=== PATIENT | male | born 1995 | race Caucasian/White ===

== ENCOUNTER 2017-09-15 06:41 | Emergency (ER) | payer OTHER ==
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
--- NOTE | 2017-09-15 08:54 | CR ---
Chest: Portable view of the chest was obtained. Comparison: No previous chest x-ray. Heart size and mediastinum are normal. Lungs are clear. Bony structures are grossly intact. Impression: 1. Nothing acute is identified on portable chest x-ray. Diagnostic code #1
--- NOTE | 2017-09-15 08:54 | CR ---
Right forearm: Two views of the right forearm were obtained. Comparison: No prior study. Soft tissue swelling seen within the forearm. No fracture or other bony abnormality is identified. Impression: 1. Soft tissue swelling. No bony abnormality is identified on right forearm study. Diagnostic code #2
== END 2017-09-15 07:50 | disposition home or self-care (01) ==
LOC: JD.ED 06:41
DX: S20.219A Contusion of unspecified front wall of thorax, initial encounter (principal); S80.811A Abrasion, right lower leg, initial encounter; Y92.410 Unspecified street and highway as the place of occurrence of the external cause; V54.5XXA Driver of pick-up truck or van injured in collision with heavy transport vehicle or bus in traffic accident, initial encounter
CPT/HCPCS: 71045; 71045-26; 73090-26-RT; 73090-RT; 99284; 99285-25

== ENCOUNTER 2019-04-11 19:17 | Emergency (ER) | payer OTHER ==
[2019-04-11] MEDS ORDERED: Glucagon,Human Recombinant 1 MG Vial IVPUSH ONE (19:40)
[2019-04-11] MEDS ORDERED: fentaNYL 100 MCG/2 ML SDV IVPUSH ONE (19:40)
[2019-04-11] MEDS ORDERED: Sodium Chloride 0.9% 10 ML Syringe FLUSH PRN (19:40)
--- NOTE | 2019-04-11 19:48 | EDM.PDOC ---
ED HPI GENERAL MEDICAL PROBLEM - General Chief Complaint: ENT Problem Stated Complaint: trouble swallowing Time Seen by Provider: 04/11/19 19:28 Source of Information: Reports: Patient, RN Notes Reviewed History Limitations: Reports: No Limitations - History of Present Illness INITIAL COMMENTS - FREE TEXT/NARRATIVE: Patient is a 23-year-old male who presents to the ED for the evaluation of trouble swallowing. Patient states that over the last 24 hours he has really been unable to swallow much of anything, including his own saliva. Patient notes that he has anxiety, and sometimes eats faster than he normally should and chokes on his food. He states that he did have a choking accident like this last night on some steak. He does not state that there is any sort of food stuck in his throat, but he states that he has not been able to drink much for water, or eat any food, but states down. He tried eating some bread earlier today, and around 15 minutes later he stated that he burped and it came back up, this is been happening with everything that he has been eating or drinking. He denies any chest pain or shortness of breath, or any heartburn. He denies any prior asthma or cardiac history as well. - Related Data Allergies Allergy/AdvReac Type Severity Reaction Status Date / Time No Known Allergies Allergy Verified 04/11/19 19:24 Home Meds: Home Meds . [No Known Home Meds] 09/15/17 [History] Past Medical History - Past Health History Medical/Surgical History: Denies Medical/Surgical History Social & Family History - Tobacco Use Smoking Status *Q: Never Smoker - Caffeine Use Caffeine Use: Reports: None - Recreational Drug Use Recreational Drug Use: No - Living Situation & Occupation Living situation: Reports: ED ROS ENT - Review of Systems Review Of Systems: See Below Constitutional: Denies: Fever, Chills Respiratory: Denies: Shortness of Breath Cardiovascular: Denies: Chest Pain GI/Abdominal: Reports: Difficulty Swallowing. Denies: Abdominal Pain, Nausea, Vomiting : Reports: No Symptoms Musculoskeletal: Reports: No Symptoms Skin: Reports: No Symptoms Neurological: Reports: No Symptoms Psychiatric: Reports: Anxiety Hematologic/Lymphatic: Reports: No Symptoms Immunologic: Reports: No Symptoms ED EXAM, ENT - Physical Exam Exam: See Below Exam Limited By: No Limitations General Appearance: Alert, WD/WN, No Apparent Distress, Anxious (pt talks very quickly in short sentences, he states this is normal for himself) Mouth/Throat: Normal Inspection, Normal Gums, Normal Lips, Normal Oropharynx, Normal Teeth Head: Atraumatic, Normocephalic Neck: Normal Inspection, Supple, Non-Tender, Full Range of Motion Respiratory/Chest: No Respiratory Distress, Lungs Clear, Normal Breath Sounds, No Accessory Muscle Use, Chest Non-Tender Cardiovascular: Normal Peripheral Pulses, Regular Rate, Rhythm, No Murmur GI/Abdominal: Normal Bowel Sounds, Soft, Non-Tender, No Distention, No Mass Extremities: Normal Inspection, Normal Capillary Refill Neurological: Alert, Oriented, Normal Cognition, No Motor/Sensory Deficits Psychiatric: Normal Affect, Normal Mood Skin: Warm, Dry, Intact, Normal Color, No Rash Course - Vital Signs Last Recorded V/S: Last Vital Signs Temp 97.6 F 04/11/19 19:22 Pulse 82 04/11/19 19:22 Resp 16 04/11/19 19:22 BP 129/77 04/11/19 19:22 Pulse Ox 100 04/11/19 19:22 - Orders/Labs/Meds Orders: Active Orders 24 hr Category Date Time Status Peripheral IV Care [RC] . DIRECTED Care 04/11/19 19:40 Ordered Sodium Chloride 0.9% [Saline Flush] Med 04/11/19 19:40 Active 10 ml FLUSH ASDIRECTED PRN Peripheral IV Insertion Adult [OM.PC] Stat Oth 04/11/19 19:40 Ordered Medication Orders Sodium Chloride (Saline Flush) 10 ml FLUSH ASDIRECTED PRN PRN Reason: Keep Vein Open Meds: Medications Generic Name Dose Route Start Last Admin Trade Name Freq PRN Reason Stop Dose Admin Sodium Chloride 10 ml 04/11/19 19:40 Saline Flush FLUSH ASDIRECTED PRN Keep Vein Open Discontinued Medications Generic Name Dose Route Start Last Admin Trade Name Freq PRN Reason Stop Dose Admin Fentanyl 50 mcg 04/11/19 19:40 04/11/19 20:08 Sublimaze IVPUSH 04/11/19 19:41 50 mcg ONETIME ONE Administration Glucagon 1 mg 04/11/19 19:40 04/11/19 20:07 Glucagen IVPUSH 04/11/19 19:41 1 mg ONETIME ONE Administration - Re-Assessments/Exams Free Text/Narrative Re-Assessment/Exam: 04/11/19 19:46 Patient presents to the ED for evaluation of difficulty swallowing. This is suspicious for possible food impaction bolus, but he is not aware of. Did order IV replaced with 1 mg glucagon and 50 mcgs of fentanyl to be given for initial management, patient will be given a medication, and then be directed to sip on a cola to see if this doesn't help relieve his symptoms. 04/11/19 20:42 Patient was reassessed at bedside, and states he is feeling much better, he is able to keep water down at this time. We'll discharge home with general recommendations. Departure - Departure Time of Disposition: 20:42 Disposition: Home, Self-Care 01 Condition: Fair Clinical Impression: Difficulty swallowing Qualifiers: Dysphagia type: unspecified Qualified Code(s): R13.10 - Dysphagia, unspecified - Discharge Information *PRESCRIPTION DRUG MONITORING PROGRAM REVIEWED*: No *COPY OF PRESCRIPTION DRUG MONITORING REPORT IN PATIENT ROGER: No Instructions: Dysphagia Eating Plan, Bite Size Food Referrals: PCP,None [Primary Care Provider] - Forms: ED Department Discharge Additional Instructions: You were evaluated in the ER tonight regarding your difficulty swallowing. You were given a combination of IV medications, that helped to relieve your symptoms. These are medications that we commonly give for a suspected food bolus impaction, due to your history, this is likely what may have been causing your symptoms. Recommend that going forward from here, make sure that you chew your food thoroughly, while taking in plenty of fluids with meals as well. If your symptoms persist, you may follow up with general surgery for possible EGD with esophageal dilatation, our [facility] clinic number is , the [place] clinic number is [phone]. You may follow up with any general surgeon that is on staff. Please return to the ED if your symptoms change or worsen. - My Orders Last 24 Hours: My Active Orders 04/11/19 19:40 Peripheral IV Care [RC] . DIRECTED Sodium Chloride 0.9% [Saline Flush] 10 ml FLUSH ASDIRECTED PRN Peripheral IV Insertion Adult [OM.PC] Stat - Assessment/Plan Last 24 Hours: My Active Orders 04/11/19 19:40 Peripheral IV Care [RC] . DIRECTED Sodium Chloride 0.9% [Saline Flush] 10 ml FLUSH ASDIRECTED PRN Peripheral IV Insertion Adult [OM.PC] Stat
== END 2019-04-11 20:58 | disposition home or self-care (01) ==
LOC: JD.ED 19:17
DX: R13.10 Dysphagia, unspecified (principal)
CPT/HCPCS: 96374; 96375; 99283; J1610; J3010

== ENCOUNTER 2022-05-11 20:05 | Day surgery (SDC) | payer OTHER ==
[2022-05-11] MEDS ORDERED: Glucagon,Human Recombinant 1 MG Vial IVPUSH ONE (20:42)
[2022-05-11] MEDS ORDERED: LORazepam 2 MG/ML SDV IVPUSH ONE (21:07)
[2022-05-11] MEDS ORDERED: Midazolam 1 MG/ML 2 ML SDV ONE (22:43)
[2022-05-11] MEDS ORDERED: Propofol 200 MG/20 ML SDV ONE (22:43)
[2022-05-11] MEDS ORDERED: Ondansetron 4 MG/2 ML SDV ONE (22:43)
[2022-05-11] MEDS ORDERED: Lidocaine 1% 4 ML ONE (22:43)
[2022-05-11] MEDS ORDERED: Succinylcholine 200 MG/10 ML MDV ONE (22:44)
[2022-05-11] MEDS ORDERED: fentaNYL 100 MCG/2 ML SDV ONE (22:48)
== END 2022-05-12 01:38 | disposition home or self-care (01) ==
LOC: JD.ED 20:05 → JD.SDS 22:39
PROVIDERS: ATTEND Surgery
DX: T18.128A Food in esophagus causing other injury, initial encounter (principal); K29.70 Gastritis, unspecified, without bleeding; K20.90 Esophagitis, unspecified without bleeding; K31.89 Other diseases of stomach and duodenum
CPT/HCPCS: 43247; 96374; 96375; 99284; J0330; J1610; J2060; J2250; J2405; J2704; J3010; 00731